=== PATIENT | female | born 1985 | race Caucasian/White ===

== ENCOUNTER 2016-12-12 06:38 | Emergency (ER) | payer BC ==
[2016-12-12 06:32] LABS: BASOPHILS 0.6 %; BASOPHILS ABSOLUTE 0.02 10/3/uL (0.0-0.16); EOSINOPHILS 0 %; HEMATOCRIT 39.9 % (36.0-48.0); HEMOGLOBIN 13.9 g/dL (12.0-16.0); LYMPHOCYTES 40.4 %; MEAN CORPUS HGB CONC 34.8 g/dL (32.0-36.0); MEAN CORPUSCULAR HEMOGLOB 30.3 pg (26.0-34.0); MEAN CORPUSCULAR VOLUME 87.1 fL (80-100); MEAN PLATELET VOLUME 9.4 fL (9.2-13.0); MONOCYTES 8.1 %; MONOCYTES ABSOLUTE 0.26 10/3/uL (0.21-1.20); NEUTROPHILS 50.9 %; NEUTROPHILS ABSOLUTE 1.64 10/3/uL (2.02-8.40); PLATELET COUNT 201 10/3/uL (150-400); RBC DISTRIBUTION WIDTH 11.7 % (12.0-16.0); RED CELL COUNT 4.58 10/6/uL (4.0-5.6); WHITE BLOOD CELLS 3.2 10/3/uL (4.5-10.5)
[2016-12-12 06:34] LABS: ASCORBIC ACID (UR NOT ORDER) NEG (NEG); BILIRUBIN, URINE NEGATIVE (NEG); ER URINALYSIS TAT 0 Hrs 00 Mins; KETONE, URINE NEGATIVE (NEG); LEUKOCYTE ESTERASE(NOT OR NEG (NEG); NITRITE (URINE) NEG (NEG); WBC (NOT ORDERED) (RFLEX) < 1 (0-5)
[2016-12-12 06:34] LABS: MANUAL DIFF NO %
[2016-12-12 06:35] LABS: ER CBC TAT 0 Hrs 11 Mins
[2016-12-12 06:40] LABS: BUN (BLOOD UREA NITROGEN) 6 MG/DL (6-23); CALCIUM, SERUM 8.8 MG/DL (8.5-10.4); CHLORIDE, SERUM 105 MMOL/L (96-112); CO2 (CARBON DIOXIDE) 23 MMOL/L (24-34); CREATININE 0.81 MG/DL (0.55-1.02); GFR AFRICAN AMERICAN 111 ML/MIN (>=60); GFR NON AFRICAN AMERICAN 95 ML/MIN (>=60); GLUCOSE, SERUM 105 MG/DL (60-99); POTASSIUM, SERUM 3.9 MMOL/L (3.5-5.3); SODIUM, SERUM 140 MMOL/L (135-148)
== END 2016-12-12 08:18 | disposition home or self-care (01) ==
LOC: ER 06:38
PROVIDERS: Nurse Practitioner
DX: R51 Headache (principal); Z88.2 Allergy status to sulfonamides
CPT/HCPCS: 70450; 80048; 81001; 85025; 96372; 96374; 99284; J1200; J1885; J2550; J2765